=== PATIENT | female | born 1985 | race Caucasian/White ===

== ENCOUNTER 2021-09-25 12:43 | Emergency (ER) | payer OTHER ==
[~2021-09-25] VITALS: Ht 157.5 cm; Wt 59.0 kg
[2021-09-25 13:33] VITALS: BP 119/72
[2021-09-25 14:43] LABS: URINE BILIRUBIN NEGATIVE (Negative); URINE BLOOD TRACE (Negative); URINE CLARITY CLEAR; URINE COLOR YELLOW; URINE GLUCOSE-RANDOM* NEGATIVE (Negative); URINE KETONES NEGATIVE (Negative); URINE LEUKOCYTES-REFLEX NEGATIVE (Negative); URINE NITRITE-REFLEX NEGATIVE (Negative); URINE PROTEIN (DIPSTICK) NEGATIVE (Negative); URINE SPECIFIC GRAVITY <= 1.005 (1.005-1.035); URINE UROBILINOGEN 0.2 E.U./dl (0.2-1.0)
--- NOTE | 2021-09-26 07:45 | EKG ---
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
== END 2021-09-25 14:59 | disposition home or self-care (01) ==
LOC: ER 12:43
PROVIDERS: Emergency Medicine; Student in an Organized Health Care Education/Training Program
DX: U07.1 COVID-19 (principal); H92.03 Otalgia, bilateral